=== PATIENT | male | born 1985 | race Caucasian/White ===

== ENCOUNTER 2018-04-19 17:02 | Emergency (ER) | payer SELFPAY ==
[~2018-04-19] VITALS: Ht 162.6 cm; Wt 108.8 kg
[~2018-04-19 17:02] MED LIST: HYDROCODON-ACE1 EAC7 PO; NAPROSYN500 MG PO; NAPROXEN500 MG PO; ULTRAM50 MG PO
[2018-04-19] MEDS ORDERED: AMOXICILLIN875 MG PO (17:21)
[2018-04-19] MEDS ORDERED: CIPRODEX OTIC7.5 ML BOTH EARS (17:21)
[2018-04-19 17:37] VITALS: BP 145/100
== END 2018-04-19 17:38 | disposition home or self-care (01) ==
LOC: EME 17:02
DX: H60.92 Unspecified otitis externa, left ear (principal); H65.93 Unspecified nonsuppurative otitis media, bilateral
CPT/HCPCS: 99281; 99283